=== PATIENT | female | born 1945 | race Hispanic/Latino ===

== ENCOUNTER 2022-03-30 10:28 | Outpatient (CLI) | payer MEDICARE, MEDICAID | END 2022-03-30 10:29 | disposition home or self-care (01) | LOC: NAV RAD 10:28 | PROVIDERS: ATTEND Family Medicine | DX: R05.8 Other specified cough (principal); R09.89 Other specified symptoms and signs involving the circulatory and respiratory systems | CPT/HCPCS: 71046 ==

== ENCOUNTER 2022-10-28 20:28 | Emergency (ER) | payer MEDICARE, MEDICAID ==
[2022-10-28 20:58] LABS: Bilirubin Small (Negative); Blood, Urine Large (Negative); Clarity Turbid (Clear); Glucose, Urine (Dipstick) Negative (Negative); Ketone, Urine 15 mg/dL (Negative); Leukocyte Large (Negative); Nitrite Positive (Negative); Protein, Urine (Dipstick) > or equal to 300 mg/dL (Neg-Trace); Specific Gravity, Urine 1.025 (1.005-1.030)
[2022-10-28 21:00] LABS: CAUTI Indications for Culture Dysuria,urgency,freq
[2022-10-28 21:02] LABS: Bacteria/HPF 4+ HPF (None Seen); RBC/HPF Greater than 50 HPF (0-3); WBC/HPF Greater Than 50 HPF (0-3)
[2022-10-28 21:03] LABS: Urine Culture Reflex Yes Yes
[2022-10-28] MEDS ORDERED: Cipro 250 MG TAB ONE (21:13)
[2022-10-28] MEDS ORDERED: Promethazine 25 MG TAB ONE (21:13)
== END 2022-10-28 21:25 | disposition home or self-care (01) ==
LOC: NAV ERS 20:28
DX: N39.0 Urinary tract infection, site not specified (principal); I10 Essential (primary) hypertension; E11.9 Type 2 diabetes mellitus without complications
CPT/HCPCS: 81001; 87077; 87086; 87186; 99284; Q0169